=== PATIENT | female | born 1945 ===

== ENCOUNTER 2017-03-03 14:01 | Inpatient (IN) | payer MEDICARE, BC ==
[2017-03-03 14:02] VITALS: BMI 20.2
--- NOTE | 2017-03-03 16:57 | C.PDOC ---
History Of Present Illness 71-year-old female, Anemia, presents to the emergency department with complaints of three-day duration of RLE "coldness, numbness/tingling." Patient was admitted, and seen by vascular surgery, podiatry and had ?stent placed. Patient notes pain w/ ambulation. Pt states she smokes a pack of cigarettes every two days. Pt has a Hx of etoh abuse but does not drink anymore. Chief Complaint (Nursing): Lower Extremity Problem/Injury History Per: Patient History/Exam Limitations: no limitations Past Medical History Reviewed: Historical Data, Nursing Documentation, Vital Signs Vital Signs: Last Vital Signs Temp 99.0 F 03/03/17 17:50 Pulse 68 03/03/17 17:50 Resp 17 03/03/17 17:50 BP 135/82 03/03/17 17:50 Pulse Ox 100 03/03/17 17:50 - Medical History PMH: Anemia (blood transfusions), Gastritis Denies: Chronic Kidney Disease - [facility] Procedures DILATION OF R FEM ART WITH DRUG-ELUT INTRA, PERC APPROACH (12/11/16) EXCISION OF DESCENDING COLON, ENDO, DIAGN (12/16/15) EXCISION OF STOMACH, ENDO, DIAGN (12/16/15) EXERCISE TRMT MUSCULOSK LOW BACK/LE W ASSIST EQUIP (12/16/16) GAIT TRAINING/AMBULAT TREATMENT USING ASSIST EQUIPMENT (12/16/16) INSERTION OF INFUSION DEV INTO SUP VENA CAVA, PERC APPROACH (12/11/16) TRANSFUSE NONAUT RED BLOOD CELLS IN PERIPH VEIN, PERC (12/11/16) Family History: States: Unknown Family Hx - Social History Hx Alcohol Use: Yes Hx Substance Use: No - Immunization History Hx Tetanus Toxoid Vaccination: No Hx Influenza Vaccination: No Hx Pneumococcal Vaccination: No Review Of Systems Except As Marked, All Systems Reviewed And Found Negative. Constitutional: Negative for: Fever, Chills Respiratory: Negative for: Shortness of Breath Gastrointestinal: Negative for: Vomiting Musculoskeletal: Positive for: Leg Pain. Negative for: Back Pain Skin: Negative for: Rash Neurological: Positive for: Numbness Physical Exam - Physical Exam Neck: Normal ROM Extremity: Tenderness, Capillary Refill (<2 SECONDS), No Deformity, No Swelling , Other (RIGHT FOOT W/ DECREASED SENSATION TO THE PLANTAR ASPECT. TENDERNESS TO PALPATION OF SHORT.) Neurological/Psych: Oriented x3, Normal Speech ED Course And Treatment - Laboratory Results Result Diagrams: 03/03/17 16:56 03/03/17 16:56 O2 Sat by Pulse Oximetry: 100 Medical Decision Making Medical Decision Makinpm - Received report for arterial and venous duplex. Spoke to Dr. Benedict, vascular surgeon. Will evaluate patient in ER. 5:30pm - Dr. Benedict to do procedure tomorrow. Patient to be NPO after midnight, except for meds. Notified Dr. Judd about admission. Disposition - Disposition Disposition Time: 17:30 Condition: STABLE - Clinical Impression Clinical Impression: Arterial, arteriole and capillary disease, Occlusion of artery of lower extremity - Scribe Statement The provider has reviewed the documentation as recorded by the Ricarda Curtis All medical record entries made by the Emanuelibmartin were at my direction and personally dictated by me. I have reviewed the chart and agree that the record accurately reflects my personal performance of the history, physical exam, medical decision making, and the department course for this patient. I have also personally directed, reviewed, and agree with the discharge instructions and disposition.
[2017-03-03 17:06] LABS: BASO # 0.1 K/uL (0.0-0.2); BASO % 1.2 % (0.0-2.0); EOS # 0.4 K/uL (0.0-0.7); EOS % 3.6 % (0.0-4.0); HEMATOCRIT 39.7 % (34.0-47.0); LYMPH # 1.6 K/uL (1.0-4.3); LYMPH % 16.1 % (20.0-40.0); MEAN CELL VOLUME 86.9 fL (81.0-99.0); MEAN CORPUSCULAR HGB CONC 32.2 g/dL (33.0-37.0); MEAN PLATELET VOLUME 8.1 fL (7.2-11.7); MONO # 1.2 K/uL (0.0-0.8); MONO % 11.5 % (0.0-10.0); RED CELL DISTRIBUTION WIDTH 22.3 % (11.5-14.5); WHITE BLOOD COUNT 10.2 K/uL (4.8-10.8)
[2017-03-03 17:16] LABS: CHLORIDE 106 mmol/L (98-107); POTASSIUM 4.5 mmol/L (3.6-5.2); SODIUM 140 mmol/L (132-148)
[2017-03-03 17:19] LABS: ALB/GLOB RATIO 1.2 (1.0-2.1); ALKALINE PHOSPHATASE 77 U/L (38-126); ALT/SGPT 15 U/L (9-52); AST/SGOT 40 U/L (14-36); BILIRUBIN,TOTAL 0.3 mg/dL (0.2-1.3); BLOOD UREA NITROGEN 19 mg/dL (7-17); CARBON DIOXIDE 22 mmol/L (22-30); GFR AFRICAN-AMERICAN > 60; GLUCOSE,RANDOM 82 mg/dL (65-105); TOTAL PROTEIN 7.4 g/dL (6.3-8.3)
[2017-03-03] MEDS ORDERED: Heparin25000 units/250ml 1/2NS 250 ML IV ONE (17:35)
[2017-03-03] MEDS ORDERED: Heparin25000 units/250ml 1/2NS 250 ML IV PRN (17:41)
[2017-03-03] MEDS ORDERED: Cilostazol 100 mg Tab UD PO SCH (18:00)
[2017-03-03] MEDS ORDERED: Heparin25000 units/250ml 1/2NS 250 ML IV SCH (18:00)
--- NOTE | 2017-03-03 20:19 | CP.PCM.HP ---
History of Present Illness - History of Present Illness History of Present Illness: 71 with anemia, neg w/u PAD, cold leg f/u with surgery, prior recent PCI on R leg, doppler is with occlusion Present on Admission - Present on Admission Any Indicators Present on Admission: No Review of Systems - Review of Systems Systems not reviewed;Unavailable: Acuity of Condition - Constitutional Constitutional: Anorexia, Weakness - EENT Eyes: absent: Discharge Ears: absent: Ear Discharge Nose/Mouth/Throat: absent: Epistaxis - Cardiovascular Cardiovascular: absent: Acrocyanosis, Chest Pain, Diaphoresis, Leg Edema, Palpitations, Syncope - Respiratory Respiratory: absent: Cough, Dyspnea, Hemoptysis - Gastrointestinal Gastrointestinal: absent: Abdominal Pain, Cramping, Diarrhea, Vomiting - Genitourinary Genitourinary: absent: Change in Urinary Stream Past Patient History - Infectious Disease Hx of Infectious Diseases: None - Past Medical History & Family History Past Medical History?: Yes - Past Social History Smoking Status: Never Smoked - CARDIAC Hx Cardiac Disorders: No Hx Circulatory Problems: Yes Hx Peripheral Vascular Disease: Yes - PULMONARY Hx Respiratory Disorders: No - NEUROLOGICAL Hx Neurological Disorder: Yes Hx Dizziness: Yes - HEENT Hx HEENT Problems: No - RENAL Hx Chronic Kidney Disease: No - ENDOCRINE/METABOLIC Hx Endocrine Disorders: No - HEMATOLOGICAL/ONCOLOGICAL Hx Anemia: Yes (blood transfusions) - INTEGUMENTARY Hx Dermatological Problems: No - MUSCULOSKELETAL/RHEUMATOLOGICAL Hx Falls: No - GASTROINTESTINAL Hx Gastritis: Yes - GENITOURINARY/GYNECOLOGICAL Hx Genitourinary Disorders: No - PSYCHIATRIC Hx Substance Use: No - SURGICAL HISTORY Hx Surgeries: No Hx Angiogram: Yes Other/Comment: aorta femoral angiogram left groin on 12/14/16 - ANESTHESIA Hx Anesthesia: No Hx Anesthesia Reactions: No Hx Malignant Hyperthermia: No Meds Allergies/Adverse Reactions: Allergies Allergy/AdvReac Type Severity Reaction Status Date / Time No Known Allergies Allergy Verified 12/16/16 15:51 Physical Exam - Constitutional Appears: Non-toxic - Head Exam Head Exam: ATRAUMATIC - Eye Exam Eye Exam: EOMI - ENT Exam ENT Exam: Mucous Membranes Moist - Neck Exam Neck exam: Negative for: Lymphadenopathy, Thyromegaly - Respiratory Exam Respiratory Exam: Clear to Auscultation Bilateral. absent: Rales - Cardiovascular Exam Cardiovascular Exam: REGULAR RHYTHM, Systolic Murmur - GI/Abdominal Exam GI & Abdominal Exam: Normal Bowel Sounds. absent: Organomegaly - Rectal Exam Rectal Exam: Deferred - Extremities Exam Extremities exam: Negative for: calf tenderness, normal capillary refill, pedal pulses present - Neurological Exam Neurological exam: Alert, Oriented x3 - Psychiatric Exam Psychiatric exam: Normal Affect - Skin Skin Exam: Dry Results - Vital Signs Recent Vital Signs: Last Vital Signs Temp 99.0 F 03/03/17 17:50 Pulse 68 03/03/17 17:50 Resp 17 03/03/17 17:50 BP 135/82 03/03/17 17:50 Pulse Ox 100 03/03/17 18:23 - Labs Result Diagrams: 03/03/17 16:56 03/03/17 16:56 Assessment & Plan (1) Arterial occlusion, lower extremity Status: Acute Comment: f/u with surgery (2) Ischemia of foot Status: Acute Decision To Admit - Pt Status Changed To: Hospital Disposition Of: Inpatient - Admit Certification Admit to Inpatient:: After my assessment, the patient will require hospitalization for at least two midnights. This is because of the severity of symptoms shown, intensity of services needed, and/or the medical risk in this patient being treated as an outpatient. - InPatient: Physician Admission Certification:: yes - . Bed Request Type: Regular
[2017-03-03] MEDS: Dextrose 5%/0.9% NS 1,000 ML IV SCH (20:38)
--- NOTE | 2017-03-03 20:58 | CP.PCM.CON ---
History of Present Illness - History of Present Illness History of Present Illness: Vascular Surgery Consult Re: Thrombosed stents HPI: 71F known to the vascular service presented to ED C/O RLE pain, numbness, and coldness since Tuesday. Pain would not improve, and it is similar to pain she had in November of this year that required her to get R SFA stenting. No other C/O at this time. PMH: Anemia, Hx gastritis PSH: R SFA stents SH: Current smoker, no EtOH or drug use All: NKDA Meds: iron pills Review of Systems - Review of Systems All systems: reviewed and no additional remarkable complaints except (as per HPI ) Past Patient History - Infectious Disease Hx of Infectious Diseases: None - Past Medical History & Family History Past Medical History?: Yes - Past Social History Smoking Status: Never Smoked - CARDIAC Hx Cardiac Disorders: No Hx Circulatory Problems: Yes Hx Peripheral Vascular Disease: Yes - PULMONARY Hx Respiratory Disorders: No - NEUROLOGICAL Hx Neurological Disorder: Yes Hx Dizziness: Yes - HEENT Hx HEENT Problems: No - RENAL Hx Chronic Kidney Disease: No - ENDOCRINE/METABOLIC Hx Endocrine Disorders: No - HEMATOLOGICAL/ONCOLOGICAL Hx Anemia: Yes (blood transfusions) - INTEGUMENTARY Hx Dermatological Problems: No - MUSCULOSKELETAL/RHEUMATOLOGICAL Hx Falls: No - GASTROINTESTINAL Hx Gastritis: Yes - GENITOURINARY/GYNECOLOGICAL Hx Genitourinary Disorders: No - PSYCHIATRIC Hx Substance Use: No - SURGICAL HISTORY Hx Surgeries: No Hx Angiogram: Yes Other/Comment: aorta femoral angiogram left groin on 12/14/16 - ANESTHESIA Hx Anesthesia: No Hx Anesthesia Reactions: No Hx Malignant Hyperthermia: No Meds Allergies/Adverse Reactions: Allergies Allergy/AdvReac Type Severity Reaction Status Date / Time No Known Allergies Allergy Verified 12/16/16 15:51 - Medications Medications: Current Medications Acetaminophen (Tylenol 325mg Tab) 650 mg PO Q6 PRN PRN Reason: Fever >100.4 F Docusate Sodium (Colace) 100 mg PO BID [facility] Heparin Sodium/Sodium Chloride (Heparin 74460 Units/250ml 1/2 Normal Saline) 250 mls @ 8.573 mls/hr IV .Q24H [facility]; 18 UNITS/KG/HR PRN Reason: Protocol Last Admin: 03/03/17 18:22 Dose: 8.573 mls/hr Dextrose/Sodium Chloride (Dextrose 5%/0.9% Ns 1000 Ml) 1,000 mls @ 100 mls/hr IV .Q10H [facility] Ondansetron HCl (Zofran Inj) 4 mg IVP Q6H PRN PRN Reason: Nausea/Vomiting Ondansetron HCl (Zofran Inj) 4 mg IVP Q6 PRN PRN Reason: Nausea/Vomiting Oxycodone/Acetaminophen (Percocet 5/325 Mg Tab) 1 tab PO Q4 PRN PRN Reason: Pain, moderate (4-7) Stop: 03/06/17 20:22 Sucralfate (Carafate Tab) 1 gm PO BID [facility] [place] [place] Physical Exam - Constitutional Appears: Non-toxic, No Acute Distress - Head Exam Head Exam: ATRAUMATIC, NORMOCEPHALIC - Eye Exam Eye Exam: EOMI. absent: Scleral icterus - ENT Exam ENT Exam: Mucous Membranes Moist Additional comments: trachea midline - Respiratory Exam Respiratory Exam: NORMAL BREATHING PATTERN. absent: Respiratory Distress - Cardiovascular Exam Cardiovascular Exam: RRR, +S1, +S2 - GI/Abdominal Exam GI & Abdominal Exam: Soft. absent: Distended, Tenderness - Rectal Exam Rectal Exam: Deferred - Extremities Exam Extremities exam: Positive for: calf tenderness (on R), tenderness (on RLE from below the knee to the toes). Negative for: pedal edema Additional comments: L PT pulse faintly palpable no palpable pulses on R from popliteal down - Back Exam Back exam: absent: CVA tenderness (L), CVA tenderness (R) - Neurological Exam Neurological exam: Alert, Oriented x3 - Psychiatric Exam Psychiatric exam: Normal Affect, Normal Mood - Skin Skin Exam: Dry, Intact, Warm Results - Vital Signs Recent Vital Signs: Last Vital Signs Temp 99.0 F 03/03/17 17:50 Pulse 68 03/03/17 17:50 Resp 17 03/03/17 17:50 BP 135/82 03/03/17 17:50 Pulse Ox 100 03/03/17 18:23 - Labs Result Diagrams: 03/03/17 16:56 03/03/17 16:56 - Imaging and Cardiology US - RLE Status: Image reviewed by me, Report reviewed by me Assessment & Plan - Assessment and Plan (Free Text) Assessment: 71F with Thrombosed stents in RLE Plan: Heparin drip NPO p MN IVF analgesia Zofran Angio tomorrow in the hoisting laborer Per Dr Marichuy Turcios PGY3
[2017-03-04] MEDS ORDERED: Heparin25000 units/250ml 1/2NS 250 ML IV SCH (00:45)
[2017-03-04] MEDS: Oxycodone/Acetaminophen 5/325 mg Tab PO PRN (04:48)
[2017-03-04] MEDS: Dextrose 5%/0.9% NS 1,000 ML IV SCH ×2 (06:49→08:25)
[2017-03-04] MEDS: Heparin25000 units/250ml 1/2NS 250 ML IV SCH (10:21)
--- NOTE | 2017-03-04 11:41 | CP.PCM.PN ---
Subjective - Date & Time of Evaluation Date of Evaluation: 03/04/17 Time of Evaluation: 12:00 - Subjective Subjective: Mildly elevated blood pressure, observe, follow-up with surgery for intervention on the right leg Objective - Vital Signs/Intake and Output Vital Signs (last 24 hours): Temp Pulse Resp BP Pulse Ox 98.0 F 64 20 169/77 H 96 03/04/17 08:56 03/04/17 08:56 03/04/17 08:56 03/04/17 08:56 03/04/17 08:56 - Medications Medications: Current Medications Acetaminophen (Tylenol 325mg Tab) 650 mg PO Q6 PRN PRN Reason: Fever >100.4 F Docusate Sodium (Colace) 100 mg PO BID [facility] Last Admin: 03/04/17 09:10 Dose: Not Given Dextrose/Sodium Chloride (Dextrose 5%/0.9% Ns 1000 Ml) 1,000 mls @ 100 mls/hr IV .Q10H [facility] Last Admin: 03/04/17 08:25 Dose: 100 mls/hr Heparin Sodium/Sodium Chloride (Heparin 98351 Units/250ml 1/2 Normal Saline) 250 mls @ 5.715 mls/hr IV .Q24H [facility]; 12 UNITS/KG/HR PRN Reason: Protocol Last Admin: 03/04/17 10:21 Dose: 5.715 mls/hr Ondansetron HCl (Zofran Inj) 4 mg IVP Q6H PRN PRN Reason: Nausea/Vomiting Ondansetron HCl (Zofran Inj) 4 mg IVP Q6 PRN PRN Reason: Nausea/Vomiting Oxycodone/Acetaminophen (Percocet 5/325 Mg Tab) 1 tab PO Q4 PRN PRN Reason: Pain, moderate (4-7) Stop: 03/06/17 20:22 Last Admin: 03/04/17 04:48 Dose: 1 tab Sucralfate (Carafate Tab) 1 gm PO BID [facility] Last Admin: 03/04/17 09:10 Dose: Not Given - Labs Labs: PT 11.4 SECONDS (9.7-12.2) 03/03/17 16:56 INR 1.0 03/03/17 16:56 APTT 131 SECONDS (21-34) H* D 03/04/17 07:43 - Constitutional Appears: Non-toxic - Head Exam Head Exam: ATRAUMATIC - Eye Exam Eye Exam: EOMI - ENT Exam ENT Exam: Mucous Membranes Moist - Neck Exam Neck Exam: absent: Lymphadenopathy, Thyromegaly - Respiratory Exam Respiratory Exam: Clear to Ausculation Bilateral. absent: Rales - Cardiovascular Exam Cardiovascular Exam: REGULAR RHYTHM, Murmur - GI/Abdominal Exam GI & Abdominal Exam: Normal Bowel Sounds. absent: Organomegaly - Rectal Exam Rectal Exam: Deferred - Extremities Exam Extremities Exam: Normal Capillary Refill. absent: Calf Tenderness - Neurological Exam Neurological Exam: Alert, Oriented x3 - Psychiatric Exam Psychiatric exam: Normal Mood - Skin Skin Exam: Dry Assessment and Plan (1) Arterial occlusion, lower extremity Status: Acute (2) Ischemia of foot Status: Acute
[2017-03-04] MEDS ORDERED: Iodixanol 320 MG/ML 200 ML BOTTLE IV ONE (13:06)
[2017-03-04] MEDS ORDERED: Iodixanol 320 MG/ML 100 ML BOTTLE IV ONE ×2 (13:07→14:43)
[2017-03-04] MEDS ORDERED: Heparin 2,000 ML IV ONE (13:27)
[2017-03-04] MEDS ORDERED: Propofol 10 mg/ml Inj (20 ML) ONE ×2 (13:31→14:44)
[2017-03-04] MEDS ORDERED: Lidocaine 2% Inj (20ml) ONE ×2 (13:39→13:46)
[2017-03-04] MEDS ORDERED: Midazolam 2 MG/2 ML VIAL ONE ×2 (13:43→13:53)
--- NOTE | 2017-03-04 15:05 | VASCLAB ---
PROCEDURE: Right Lower Extremity Venous Duplex Exam. HISTORY: Pain in limb, cool leg/foot PRIORS: None. TECHNIQUE: Right common femoral, femoral, popliteal and posterior tibial, peroneal and great saphenous veins were evaluated. Flow was assessed with color Doppler, compressibility, assessment of phasic flow and augmentation response. Report prepared by SEAMUS Mckeon FINDINGS: RIGHT: 1. Common Femoral Vein: 1.1. Compressibility - Fully compressible: Thrombus - None: Flow - Phasic: Augmentation -Normal: Reflux - None. 2. Femoral Vein: 2.1. Compressibility - Fully compressible: Thrombus - None: Flow - Phasic: Augmentation -Normal: Reflux - None. 3. Popliteal Vein: 3.1. Compressibility - Fully compressible: Thrombus - None: Flow - Phasic: Augmentation -Normal: Reflux - None. 4. Posterior Tibial Vein: 4.1. Compressibility - Fully compressible: Thrombus - None: Flow - Phasic: Augmentation -Normal: Reflux - None. 5. Peroneal Vein: 5.1. Compressibility - Fully compressible: Thrombus - None: Flow - Phasic: Augmentation -Normal: Reflux - None. 6. Great Saphenous Vein: 6.1. Compressibility - Fully compressible: Thrombus -None: Flow - Phasic: Augmentation - Normal: Reflux - None. OTHER FINDINGS: IMPRESSION: No evidence of deep or superficial vein thrombosis of the right lower extremity with excellent venous flow. Normal valve function noted of the right side. Normal venous flow noted in the left common femoral vein.
--- NOTE | 2017-03-04 15:06 | VASCLAB ---
PROCEDURE: HISTORY: Pain in limb, cool leg/foot, Right lower extremity stents COMPARISON: None available. TECHNIQUE: Grayscale and duplex Doppler evaluation of the right common femoral, femoral, profunda femoral, popliteal, posterior tibial, anterior tibial and dorsalis pedis arteries was performed. Report prepared by SEAMUS Mckeon FINDINGS: RIGHT LOWER EXTREMITY: * Common Femoral Artery: Unable to image * Superficial Femoral Artery Stent o Proximal Segment: Peak Systolic Velocity - 0: Doppler Waveform: Absent o Middle Segment: Peak Systolic Velocity - 0: Doppler Waveform: Absent o Distal Segment: Peak Systolic Velocity - 0: Doppler Waveform: Absent * Popliteal Artery Stent o Proximal Segment: Peak Systolic Velocity - 0: Doppler Waveform: Absent o Middle Segment: Peak Systolic Velocity - 0: Doppler Waveform: Absent o Distal Segment: Peak Systolic Velocity - 0: Doppler Waveform: Absent OTHER FINDINGS: None. IMPRESSION: 1. Occluded right superficial femoral artery stent. 2. Occluded right popliteal artery stent. 3. Unable to image the tibial arteries in the right lower extremity, due to small caliber vessels. Findings were reported by the computed tomography technologist, to the E.R. physician Dr. Mccauley, on 03/03/2017 at 4:36 p.m.
--- NOTE | 2017-03-04 16:33 | PCM.SURG1 ---
Surgeon's Initial Post Op Note - Surgeon's Notes Surgeon: galen Rf Technician: 0 Type of Anesthesia: IV Sedation Anesthesia Administered By: abhishek Pre-Operative Diagnosis: acute thrombosis right ilac and sfa Operative Findings: complete occlusion of right external ilac, common femora. profonda and sfa down to knee. no named vessels seen distally. LEFT SFA occlusion with recon at knee Post-Operative Diagnosis: same Operation Performed: AORTOFEMORAL ANGIOGRAM VIA LEFT GROIN. SLECTIVE CATHERIZATION OF RIGHT FEMORAL ARTERY. MECHANCICAL THROMBOLYIS OF RIGHT ILIAC AND SFA. BALLOON ANGIOPLASTY / 5X40 STENT TO ORIGIN OF RIGHT PROFONDA. PERCLOSE LEFT GROIN Specimen/Specimens Removed: 0 Estimated Blood Loss: EBL {In ML}: 50 Blood Products Given: N/A Drains Used: No Drains Post-Op Condition: Good Date of Surgery/Procedure: 03/04/17 Time of Surgery/Procedure: 16:35
--- NOTE | 2017-03-04 17:04 | VAS ---
DATE: 03/04/2017 PREOPERATIVE DIAGNOSIS: Acute ischemia, right leg. PROCEDURE CARRIED OUT: Aortofemoral angiogram via left groin with selective catheterization of right femoral artery, mechanical thrombolysis of the right external iliac and superficial femoral artery w ith the AngioJet power pulse device and then balloon angioplasty and stenting of the profunda femoris artery. SURGEON: Krishna Benedict MD. MANAGER CABLE: None. ANESTHESIOLOGIST: ____ . INDICATIONS: The patient is a 71-year-old woman who continues to smoke, who was admitted to the [facility] in November. She had an emergency intervention on her right leg with salvage of her right leg at that time, she now is readmitted with a relatively acute ischemia of a few days duration of the righ t leg. ANGIOGRAPHIC FINDINGS OPERATIVE FINDINGS: The aorta and renal arteries are free of significant occlusive disease. Both co mmon iliac arteries are free of significant occlusive disease. On the left side, the external iliac arteries were widely patent. Profunda was widely patent. The superficial femoral artery was occlude d and reconstituted above the level of the knee. Runoff vessels were not be adequately visualized. On the right side the external iliac artery was completely occluded and did not reconstitute in the g roin and the profunda was poorly visualized. The superficial femoral artery was completely occluded down to the level of the knee. Subsequent to the performance of diagnostic arteriogram, a stiff-angled guidewire was advanced over t he aortic bifurcation and a sheath positioned in the common femoral artery, a 7-Maltese sheath. Using a variety of techniques this lesion was eventually crossed and a Lozano wire placed down to level of the popliteal artery. We then, using TPA and mechanical thrombolysis using the AngioJet device, were able to recanalized the external iliac artery and the proximal portion of the superficial femoral ar carol. However, we were unable to enter into any named tibial vessel. Previous images shown that the peroneal artery was patent; however, in this case, we were unable to v isualize this at all and we abandoned further attempts at trying to recanalize the vessels below the knee. We then turned our attention to the common femoral artery. We carried out using road mapping techniq ues crossed into the profunda, dilated this with a 4 mm balloon and eventually deployed a 5 mm stent excluding the superficial femoral artery but providing widely patent flow into the profunda femoris a rtery and the artery opened external iliac artery. This resulted in a much better perfusion into the limbs and we had had before. The procedure was subsequently terminated with deployment of a Perclo se device in the left groin. OPERATION CARRIED OUT: 1. Aortofemoral angiogram with selective catheterization of right femoral artery from left groin. 2. Mechanical thrombolysis using AngioJet device and TPA. 3. Balloon angioplasty and stenting of the right profunda femoris artery and TPA AngioJet was nikolas d out on the external iliac, common femoral, and superficial femoral artery into the popliteal artery . Subsequent to this, a Perclose device deployed in the left groin. The procedure was terminated. Blood loss of procedure was over 50 mL. Krishan Benedict Jr., MD cc:Gisela Judd MD 56 TT: 03/04/2017 17:03:22 Confirmation # [id number] Dictation # [id number]
[2017-03-04] MEDS: Dextrose 5%/0.45% NS 1,000 ML IV SCH (18:17)
--- NOTE | 2017-03-04 18:52 | CP.PCM.CON ---
<Bravo Solorio - Last Filed: 03/04/17 21:15> History of Present Illness - History of Present Illness History of Present Illness: ICU consult note for pallet rectifier, Dr. Johnson Consult for: monitoring post-aortofemoral angiogram HPI: Patient is 71 year old female, with PMHx of anemia, right hallux ulcer, GI bleed , syncopal episodes, and alcohol abuse, who presented to ED on 03/03 for three days of experiencing right lower extremity "coldness" with associated numbness and tingling since Tuesday. Pain would not improve, and it is similar to pain she had in November of this year that required her to get right superficial femoral artery stenting. Pt has had negative workup for PAD in the past. Extremity dopplers performed on admission show occluded right superficial femoral artery stent, and occluded right popliteal artery stent. Pt was placed on heparin drip and scheduled for angio. Dr. Benedict, vascular surgery, performed aortofemoral angiogram with thrombolysis of right iliac and sfa. Blood loss of estimated 50ml during surgery. Pt was transferred to ICU for monitoring post-procedure. PMHx: see above PSH: R SFA stents SH: smokes approx 1/2 ppd, admits hx of alcohol abuse, but denies drug use Allergies: NKA Review of Systems - Review of Systems Systems not reviewed;Unavailable: Other (pt s/p anesthesia) - Constitutional Constitutional: absent: Chills, Fever - Cardiovascular Cardiovascular: absent: Chest Pain, Chest Pain at Rest, Dyspnea - Respiratory Respiratory: absent: Cough, Dyspnea - Gastrointestinal Gastrointestinal: absent: Abdominal Pain - Genitourinary Genitourinary: absent: Dysuria - Musculoskeletal Musculoskeletal: absent: Numbness - Neurological Neurological: absent: Tingling, Weakness Past Patient History - Infectious Disease Hx of Infectious Diseases: None - Past Medical History & Family History Past Medical History?: Yes - Past Social History Smoking Status: Former Smoker - CARDIAC Hx Cardiac Disorders: No Hx Circulatory Problems: Yes Hx Peripheral Vascular Disease: Yes - PULMONARY Hx Respiratory Disorders: No - NEUROLOGICAL Hx Neurological Disorder: Yes Hx Dizziness: Yes - HEENT Hx HEENT Problems: No - RENAL Hx Chronic Kidney Disease: No - ENDOCRINE/METABOLIC Hx Endocrine Disorders: No - HEMATOLOGICAL/ONCOLOGICAL Hx Anemia: Yes (blood transfusions) - INTEGUMENTARY Hx Dermatological Problems: No - MUSCULOSKELETAL/RHEUMATOLOGICAL Hx Falls: No - GASTROINTESTINAL Hx Gastritis: Yes - GENITOURINARY/GYNECOLOGICAL Hx Genitourinary Disorders: No - PSYCHIATRIC Hx Substance Use: No - SURGICAL HISTORY Hx Surgeries: No Hx Angiogram: Yes Other/Comment: aorta femoral angiogram left groin on 12/14/16 - ANESTHESIA Hx Anesthesia: No Hx Anesthesia Reactions: No Hx Malignant Hyperthermia: No Meds Allergies/Adverse Reactions: Allergies Allergy/AdvReac Type Severity Reaction Status Date / Time No Known Allergies Allergy Verified 12/16/16 15:51 - Medications Medications: Current Medications Acetaminophen (Tylenol 325mg Tab) 650 mg PO Q6 PRN PRN Reason: Fever >100.4 F Docusate Sodium (Colace) 100 mg PO BID [facility] Last Admin: 03/04/17 18:18 Dose: Not Given Heparin Sodium/Sodium Chloride (Heparin 32901 Units/250ml 1/2 Normal Saline) 250 mls @ 5.715 mls/hr IV .Q24H [facility]; 12 UNITS/KG/HR PRN Reason: Protocol Last Admin: 03/04/17 10:21 Dose: 5.715 mls/hr Dextrose/Sodium Chloride (Dextrose 5%/0.45% Ns 1000 Ml) 1,000 mls @ 100 mls/hr IV .Q10H [facility] Last Admin: 03/04/17 18:17 Dose: 100 mls/hr Ondansetron HCl (Zofran Inj) 4 mg IVP Q6H PRN PRN Reason: Nausea/Vomiting Ondansetron HCl (Zofran Inj) 4 mg IVP Q6 PRN PRN Reason: Nausea/Vomiting Oxycodone/Acetaminophen (Percocet 5/325 Mg Tab) 1 tab PO Q4 PRN PRN Reason: Pain, moderate (4-7) Stop: 03/06/17 20:22 Last Admin: 03/04/17 04:48 Dose: 1 tab Sucralfate (Carafate Tab) 1 gm PO BID [facility] Last Admin: 03/04/17 18:17 Dose: Not Given Physical Exam - Constitutional Appears: No Acute Distress - Head Exam Head Exam: ATRAUMATIC, NORMAL INSPECTION, NORMOCEPHALIC - Eye Exam Eye Exam: EOMI Pupil Exam: PERRL - ENT Exam ENT Exam: Mucous Membranes Moist - Respiratory Exam Respiratory Exam: Clear to Auscultation Bilateral, NORMAL BREATHING PATTERN Additional comments: 2L NC - Cardiovascular Exam Cardiovascular Exam: REGULAR RHYTHM, +S1, +S2 - GI/Abdominal Exam GI & Abdominal Exam: Normal Bowel Sounds, Soft. absent: Tenderness - Exam Additional comments: rawls catheter noted - Extremities Exam Additional comments: bandages noted - Neurological Exam Neurological exam: Alert, Oriented x3 Additional comments: drowsy from anesthesia but responsive - Psychiatric Exam Psychiatric exam: Normal Affect - Skin Skin Exam: Normal Color, Warm Results - Vital Signs Recent Vital Signs: Last Vital Signs Temp 98.4 F 03/04/17 18:09 Pulse 68 03/04/17 18:09 Resp 15 03/04/17 18:09 BP 135/73 03/04/17 18:09 Pulse Ox 99 03/04/17 11:40 - Labs Result Diagrams: 03/03/17 16:56 03/03/17 16:56 Labs: Laboratory Results - last 24 hr 03/04/17 03/04/17 00:02 07:43 APTT 305 H* D 131 H* D Assessment & Plan - Assessment and Plan (Free Text) Assessment: 71 year old female, with PMHx of anemia, right hallux ulcer, GI bleed, syncopal episodes, and alcohol abuse, who presented to ED on 03/03 for leg temperature change/numbness/tingling. US dopplers positive for occluded right superficial femoral artery stent, and occluded right popliteal artery stent. S/p aortofemoral angiogram with thrombolysis of right iliac/sfa. Plan: Neuro: AAOx3 - groggy post-anesthesia, but responsive CV: Normotensive post-surgery HTN noted through course Monitor BP GI: NPO D5/.5 NS @ 100 Colace 100mg PO BID Zofran 4mg IV Q6H PRN : rawls placed 03/04 following surgery Monitor I/Os Extremity: US Doppler RLE (03/03/17): No evidence of superficial vein thrombosis of RLE, with excellent venous flow. US Doppler LLE (03/03/17): Occluded right superficial femoral artery stent. Occluded right popliteal artery stent. S/p Angiogram/Thrombolysis with Dr. Honey Devineocet 5/325 1 tab PO Q4 PRN, moderate pain Hem/Onc Hx of anemia - Hgb 12.8 on 03/03 Prophylaxis: SCDs contraindicated Heparin drip Carafate D/w Dr. Alex Solorio, PGY-1 <Paul Johnson S - Last Filed: 04/20/17 13:23> Results - Vital Signs Recent Vital Signs: Last Vital Signs Temp 98.3 F 03/09/17 16:00 Pulse 92 H 03/09/17 16:00 Resp 20 03/09/17 16:00 BP 120/70 03/09/17 16:00 Pulse Ox 98 03/09/17 16:00 - Labs Result Diagrams: 03/09/17 07:20 03/09/17 07:20 Attending/Attestation - Attestation I have personally seen and examined this patient.: Yes I have fully participated in the care of the patient.: Yes I have reviewed all pertinent clinical information: Yes Notes (Text): 04/20/17 13:23 Patient seen and examined. S/p aortofemoral angiogram with thrombolysis of right iliac/sfa. Continue present treatment
[2017-03-05] MEDS: Dextrose 5%/0.45% NS 1,000 ML IV SCH (02:55)
[2017-03-05 04:14] LABS: MEAN CELL VOLUME 87.1 fL (81.0-99.0); MEAN CORPUSCULAR HEMOGLOBIN 27.5 pg (27.0-31.0); MEAN CORPUSCULAR HGB CONC 31.5 g/dL (33.0-37.0); RED CELL DISTRIBUTION WIDTH 22.2 % (11.5-14.5); WHITE BLOOD COUNT 9.4 K/uL (4.8-10.8)
[2017-03-05 04:15] LABS: CHLORIDE 111 mmol/L (98-107); POTASSIUM 3.9 mmol/L (3.6-5.2); SODIUM 140 mmol/L (132-148)
[2017-03-05 04:17] LABS: BILIRUBIN,TOTAL 0.2 mg/dL (0.2-1.3); GFR AFRICAN-AMERICAN > 60; MAGNESIUM 1.8 mg/dL (1.6-2.3); PHOSPHOROUS 3.6 mg/dL (2.5-4.5)
[2017-03-05 04:18] LABS: ALB/GLOB RATIO 1.1 (1.0-2.1); ALKALINE PHOSPHATASE 50 U/L (38-126); ALT/SGPT 19 U/L (9-52); AST/SGOT 55 U/L (14-36); BLOOD UREA NITROGEN 10 mg/dL (7-17); CALCIUM 7.8 mg/dl (8.6-10.4); CARBON DIOXIDE 19 mmol/L (22-30); GLUCOSE,RANDOM 116 mg/dL (65-105); TOTAL PROTEIN 5.3 g/dL (6.3-8.3)
--- NOTE | 2017-03-05 07:48 | CP.CCUPN ---
CCU Subjective - Physician Review Events Since Last Encounter (Free Text): 03/05/17 07:46 Patient is a 71-year-old female with history of anemia, alcohol use, chronic smoker admitted to the hospital with right femoral artery occlusion, and the patient underwent thrombolysis and heparin drip. Patient is currently still having pain over the right leg as well as over the left leg. There is a significant discoloration of the right foot still noted. The right foot is more cold than the left foot. And also there is a significant pain on the left leg and slight discoloration noted also Peripheral pulses in the legs is not dopplerable. Vital signs otherwise stable. CCU Objective - Vital Signs / Intake & Output Vital Signs (Last 4 hours): Vital Signs Temp Pulse Resp BP Pulse Ox 03/05/17 06:00 68 17 143/58 L 100 03/05/17 05:00 68 17 143/52 L 100 03/05/17 04:00 98.2 F 76 16 127/55 L 100 Chest good air entry bilaterally regular heart sound nontender abdomen. [employer] alert awake oriented 3 no functional neurological deficit Intake and Output (Last 8hrs): Intake & Output 03/04/17 03/05/17 03/05/17 22:59 06:59 14:59 Intake Total 704.3 934.4 Output Total 400 340 Balance 304.3 594.4 Intake: IV 0 Intake, IV Amount 304.3 834.4 Left Forearm 300 800 Left Hand 4.3 34.4 Oral 400 100 Output: Urine 400 340 Urine, Voided 75 Urethral (Davis) 325 340 Other: # Voids Urine, Voided 2 - Medications Active Medications: Active Medications Generic Name Dose Route Start Last Admin Trade Name Freq PRN Reason Stop Dose Admin Acetaminophen 650 mg 03/03/17 20:21 03/04/17 21:30 Tylenol 325mg Tab PO 650 mg Q6 PRN Administration Fever >100.4 F Docusate Sodium 100 mg 03/04/17 10:00 03/04/17 18:18 Colace PO Not Given BID [facility] Heparin Sodium/Sodium Chloride 250 mls @ 5.715 mls/hr 03/04/17 10:20 03/04/17 21:56 Heparin 34554 Units/250ml 1/2 Normal Saline IV 9 units/kg/hr .Q24H [facility] Titration Protocol 12 UNITS/KG/HR Dextrose/Sodium Chloride 1,000 mls @ 100 mls/hr 03/04/17 16:45 03/05/17 02:55 Dextrose 5%/0.45% Ns 1000 Ml IV 100 mls/hr .Q10H [facility] Administration Ondansetron HCl 4 mg 03/03/17 17:36 Zofran Inj IVP Q6H PRN Nausea/Vomiting Ondansetron HCl 4 mg 03/03/17 20:21 Zofran Inj IVP Q6 PRN Nausea/Vomiting Oxycodone/Acetaminophen 1 tab 03/03/17 20:21 03/04/17 04:48 Percocet 5/325 Mg Tab PO 03/06/17 20:22 1 tab Q4 PRN Administration Pain, moderate (4-7) Sucralfate 1 gm 03/04/17 10:00 03/04/17 18:17 Carafate Tab PO Not Given BID [facility] - Patient Studies Lab Studies: Lab Studies 03/05/17 03/04/17 03/04/17 Range/Units 04:01 20:40 07:43 WBC 9.4 (4.8-10.8) K/uL RBC 3.56 L (3.80-5.20) Mil/uL Hgb 9.8 L D (11.0-16.0) g/dL Hct 31.0 L (34.0-47.0) % MCV 87.1 (81.0-99.0) fL MCH 27.5 (27.0-31.0) pg MCHC 31.5 L (33.0-37.0) g/dL RDW 22.2 H (11.5-14.5) % Plt Count 213 (130-400) K/uL MPV 8.0 (7.2-11.7) fL APTT 54 H D 133 H* 131 H* D (21-34) SECONDS Sodium 140 (132-148) mmol/L Potassium 3.9 (3.6-5.2) mmol/L Chloride 111 H (98-107) mmol/L Carbon Dioxide 19 L (22-30) mmol/L Anion Gap 14 (10-20) BUN 10 (7-17) mg/dL Creatinine 0.7 (0.7-1.2) MG/DL Est GFR ( Amer) > 60 Est GFR (Non-Af Amer) > 60 Random Glucose 116 H (65-105) mg/dL Calcium 7.8 L (8.6-10.4) mg/dl Phosphorus 3.6 (2.5-4.5) mg/dL Magnesium 1.8 (1.6-2.3) mg/dL Total Bilirubin 0.2 (0.2-1.3) mg/dL AST 55 H D (14-36) U/L ALT 19 (9-52) U/L Alkaline Phosphatase 50 (38-126) U/L Total Protein 5.3 L (6.3-8.3) g/dL Albumin 2.8 L D (3.5-5.0) g/dL Globulin 2.5 (2.2-3.9) gm/dL Albumin/Globulin Ratio 1.1 (1.0-2.1) Laboratory Results - last 24 hr 03/04/17 03/04/17 03/05/17 07:43 20:40 04:01 WBC 9.4 RBC 3.56 L Hgb 9.8 L D Hct 31.0 L MCV 87.1 MCH 27.5 MCHC 31.5 L RDW 22.2 H Plt Count 213 MPV 8.0 APTT 131 H* D 133 H* 54 H D Sodium 140 Potassium 3.9 Chloride 111 H Carbon Dioxide 19 L Anion Gap 14 BUN 10 Creatinine 0.7 Est GFR ( Amer) > 60 Est GFR (Non-Af Amer) > 60 Random Glucose 116 H Calcium 7.8 L Phosphorus 3.6 Magnesium 1.8 Total Bilirubin 0.2 AST 55 H D ALT 19 Alkaline Phosphatase 50 Total Protein 5.3 L Albumin 2.8 L D Globulin 2.5 Albumin/Globulin Ratio 1.1 Review of Systems - Review of Systems All systems: reviewed and no additional remarkable complaints except Review of Systems: Patient is awake and responding. Patient is not in any distress at this time. Patient no nausea vomiting. Critical Care Progress Note - Nutrition Nutrition: Nutrition Category Date Time Status Regular Diet [DIET] Diets 03/03/17 Breakfast Active Assessment/Plan (1) Arterial occlusion, lower extremity Assessment and plan: Patient with a severe peripherovascular disease. Severe peripheral vascular disease with occlusion. Patient underwent a thrombolysis on heparin drip. Still showing no evidence of improvement. We'll continue to monitor, surgical follow-up closely monitor the hemoglobin Current Visit: Yes Status: Acute (2) Tobacco abuse Current Visit: No Status: Acute
--- NOTE | 2017-03-05 08:47 | CP.PCM.PN ---
Subjective - Date & Time of Evaluation Date of Evaluation: 03/05/17 Time of Evaluation: 06:00 - Subjective Subjective: Vascular surgery - Dr. Benedict Pt S&E. Pt doing well post-operatively. She still complains of pain in the R leg, unchanged. B/L LE are warm and appear perfused, Pulses were not dopplerable. Left groin C/D/I with no signs of hematoma. Objective - Vital Signs/Intake and Output Vital Signs (last 24 hours): Temp Pulse Resp BP Pulse Ox 98.3 F 84 18 132/84 100 03/05/17 08:00 03/05/17 08:00 03/05/17 08:00 03/05/17 08:00 03/05/17 08:00 Intake and Output: 03/05/17 03/05/17 06:59 18:59 Intake Total 1138.7 328.6 Output Total 900 100 Balance 238.7 228.6 - Medications Medications: Current Medications Acetaminophen (Tylenol 325mg Tab) 650 mg PO Q6 PRN PRN Reason: Fever >100.4 F Last Admin: 03/05/17 07:53 Dose: 650 mg Docusate Sodium (Colace) 100 mg PO BID [facility] Last Admin: 03/04/17 18:18 Dose: Not Given Heparin Sodium/Sodium Chloride (Heparin 72478 Units/250ml 1/2 Normal Saline) 250 mls @ 5.715 mls/hr IV .Q24H [facility]; 12 UNITS/KG/HR PRN Reason: Protocol Last Titration: 03/04/17 21:56 Dose: 9 units/kg/hr Dextrose/Sodium Chloride (Dextrose 5%/0.45% Ns 1000 Ml) 1,000 mls @ 100 mls/hr IV .Q10H [facility] Last Admin: 03/05/17 02:55 Dose: 100 mls/hr Ondansetron HCl (Zofran Inj) 4 mg IVP Q6H PRN PRN Reason: Nausea/Vomiting Ondansetron HCl (Zofran Inj) 4 mg IVP Q6 PRN PRN Reason: Nausea/Vomiting Oxycodone/Acetaminophen (Percocet 5/325 Mg Tab) 1 tab PO Q4 PRN PRN Reason: Pain, moderate (4-7) Stop: 03/06/17 20:22 Last Admin: 03/04/17 04:48 Dose: 1 tab Sucralfate (Carafate Tab) 1 gm PO BID [facility] Last Admin: 03/04/17 18:17 Dose: Not Given - Labs Labs: 03/05/17 04:01 03/05/17 04:01 PT 11.4 SECONDS (9.7-12.2) 03/03/17 16:56 INR 1.0 03/03/17 16:56 APTT 54 SECONDS (21-34) H D 03/05/17 04:01 - Constitutional Appears: No Acute Distress - Head Exam Head Exam: ATRAUMATIC, NORMAL INSPECTION, NORMOCEPHALIC - Respiratory Exam Respiratory Exam: NORMAL BREATHING PATTERN. absent: Respiratory Distress - Extremities Exam Additional comments: L groin puncture site C/D/I with dermabond B/L LE warm and with good capillary refill, Pulses were not dopplerable - Neurological Exam Neurological Exam: Alert, Oriented x3 - Psychiatric Exam Psychiatric exam: Normal Affect, Normal Mood - Skin Skin Exam: Dry, Intact Assessment and Plan - Assessment and Plan (Free Text) Assessment: 71yo F s/p Angiogram w/ thrombolysis of R iliac and SFA, Balloon angioplasty and Stent placement, POD #1 -B/L LE appear perfused, groin site looks good -Continue anticoagulation -Continue care as per ICU/PMD Further recs per Dr. Benedict
--- NOTE | 2017-03-05 10:08 | CP.PCM.PN ---
Subjective - Date & Time of Evaluation Date of Evaluation: 03/05/17 Time of Evaluation: 10:06 - Subjective Subjective: right leg much improved difficult to hear doppler signals in either foot. but no neuro or motor deficit may require left groin exporation ? closure device related will make NPO for possible exploration in AM Objective - Vital Signs/Intake and Output Vital Signs (last 24 hours): Temp Pulse Resp BP Pulse Ox 98.3 F 84 18 132/84 100 03/05/17 08:00 03/05/17 08:00 03/05/17 08:00 03/05/17 08:00 03/05/17 08:00 Intake and Output: 03/05/17 03/05/17 06:59 18:59 Intake Total 1138.7 328.6 Output Total 900 100 Balance 238.7 228.6 - Medications Medications: Current Medications Acetaminophen (Tylenol 325mg Tab) 650 mg PO Q6 PRN PRN Reason: Fever >100.4 F Last Admin: 03/05/17 07:53 Dose: 650 mg Docusate Sodium (Colace) 100 mg PO BID [facility] Last Admin: 03/05/17 09:25 Dose: 100 mg Heparin Sodium/Sodium Chloride (Heparin 01201 Units/250ml 1/2 Normal Saline) 250 mls @ 5.715 mls/hr IV .Q24H [facility]; 12 UNITS/KG/HR PRN Reason: Protocol Last Titration: 03/04/17 21:56 Dose: 9 units/kg/hr Dextrose/Sodium Chloride (Dextrose 5%/0.45% Ns 1000 Ml) 1,000 mls @ 100 mls/hr IV .Q10H [facility] Last Admin: 03/05/17 02:55 Dose: 100 mls/hr Ondansetron HCl (Zofran Inj) 4 mg IVP Q6H PRN PRN Reason: Nausea/Vomiting Ondansetron HCl (Zofran Inj) 4 mg IVP Q6 PRN PRN Reason: Nausea/Vomiting Oxycodone/Acetaminophen (Percocet 5/325 Mg Tab) 1 tab PO Q4 PRN PRN Reason: Pain, moderate (4-7) Stop: 03/06/17 20:22 Last Admin: 03/04/17 04:48 Dose: 1 tab Sucralfate (Carafate Tab) 1 gm PO BID [facility] Last Admin: 03/05/17 09:25 Dose: 1 gm - Labs Labs: 03/05/17 04:01 03/05/17 04:01 PT 11.4 SECONDS (9.7-12.2) 03/03/17 16:56 INR 1.0 03/03/17 16:56 APTT 54 SECONDS (21-34) H D 03/05/17 04:01
[2017-03-05] MEDS: Oxycodone/Acetaminophen 5/325 mg Tab PO PRN ×2 (10:51→23:45)
--- NOTE | 2017-03-05 14:39 | CP.PCM.PN ---
Subjective - Date & Time of Evaluation Date of Evaluation: 03/05/17 Time of Evaluation: 15:00 - Subjective Subjective: post percutaneous intervention, the leg is warm yet no pulse, seen by surgery planning exploration in the morning Objective - Vital Signs/Intake and Output Vital Signs (last 24 hours): Temp Pulse Resp BP Pulse Ox 98.9 F 5 L 20 153/64 H 98 03/05/17 12:00 03/05/17 14:00 03/05/17 14:00 03/05/17 14:00 03/05/17 14:00 Intake and Output: 03/05/17 03/05/17 06:59 18:59 Intake Total 1138.7 704.4 Output Total 900 1050 Balance 238.7 -345.6 - Medications Medications: Current Medications Acetaminophen (Tylenol 325mg Tab) 650 mg PO Q6 PRN PRN Reason: Fever >100.4 F Last Admin: 03/05/17 07:53 Dose: 650 mg Docusate Sodium (Colace) 100 mg PO BID [facility] Last Admin: 03/05/17 09:25 Dose: 100 mg Heparin Sodium/Sodium Chloride (Heparin 24015 Units/250ml 1/2 Normal Saline) 250 mls @ 5.715 mls/hr IV .Q24H [facility]; 12 UNITS/KG/HR PRN Reason: Protocol Last Titration: 03/04/17 21:56 Dose: 9 units/kg/hr Ondansetron HCl (Zofran Inj) 4 mg IVP Q6H PRN PRN Reason: Nausea/Vomiting Ondansetron HCl (Zofran Inj) 4 mg IVP Q6 PRN PRN Reason: Nausea/Vomiting Oxycodone/Acetaminophen (Percocet 5/325 Mg Tab) 1 tab PO Q4 PRN PRN Reason: Pain, moderate (4-7) Stop: 03/06/17 20:22 Last Admin: 03/05/17 10:51 Dose: 1 tab Sucralfate (Carafate Tab) 1 gm PO BID [facility] Last Admin: 03/05/17 09:25 Dose: 1 gm - Labs Labs: 03/05/17 04:01 03/05/17 04:01 PT 11.4 SECONDS (9.7-12.2) 03/03/17 16:56 INR 1.0 03/03/17 16:56 APTT 55 SECONDS (21-34) H 03/05/17 12:49 - Constitutional Appears: Non-toxic - Head Exam Head Exam: ATRAUMATIC - Eye Exam Eye Exam: EOMI - ENT Exam ENT Exam: Mucous Membranes Moist - Neck Exam Neck Exam: absent: Lymphadenopathy, Thyromegaly - Respiratory Exam Respiratory Exam: Clear to Ausculation Bilateral. absent: Rales - Cardiovascular Exam Cardiovascular Exam: REGULAR RHYTHM, Murmur - GI/Abdominal Exam GI & Abdominal Exam: Normal Bowel Sounds. absent: Organomegaly - Rectal Exam Rectal Exam: Deferred - Extremities Exam Extremities Exam: Normal Capillary Refill. absent: Calf Tenderness - Neurological Exam Neurological Exam: Alert, Oriented x3 - Psychiatric Exam Psychiatric exam: Normal Mood - Skin Skin Exam: Dry Assessment and Plan (1) Arterial occlusion, lower extremity Status: Acute (2) Ischemia of foot Status: Acute
[2017-03-05] MEDS: Heparin25000 units/250ml 1/2NS 250 ML IV SCH (17:02)
[2017-03-06 04:32] LABS: CHLORIDE 110 mmol/L (98-107); POTASSIUM 4.1 mmol/L (3.6-5.2); SODIUM 141 mmol/L (132-148)
[2017-03-06 04:34] LABS: ALB/GLOB RATIO 1.1 (1.0-2.1); ALKALINE PHOSPHATASE 52 U/L (38-126); AST/SGOT 74 U/L (14-36); BILIRUBIN,TOTAL < 0.1 mg/dL (0.2-1.3); CARBON DIOXIDE 21 mmol/L (22-30); GFR AFRICAN-AMERICAN > 60; TOTAL PROTEIN 5.8 g/dL (6.3-8.3)
[2017-03-06 04:35] LABS: ALT/SGPT 17 U/L (9-52); BLOOD UREA NITROGEN 11 mg/dL (7-17); CALCIUM 8.2 mg/dl (8.6-10.4); GLUCOSE,RANDOM 90 mg/dL (65-105); PHOSPHOROUS 2.9 mg/dL (2.5-4.5)
[2017-03-06 04:36] LABS: BASO # 0.1 K/uL (0.0-0.2); BASO % 1.3 % (0.0-2.0); EOS # 0.6 K/uL (0.0-0.7); EOS % 6.3 % (0.0-4.0); LYMPH # 1.9 K/uL (1.0-4.3); LYMPH % 21.1 % (20.0-40.0); MAGNESIUM 1.8 mg/dL (1.6-2.3); MEAN CELL VOLUME 87.8 fL (81.0-99.0); MEAN CORPUSCULAR HEMOGLOBIN 27.9 pg (27.0-31.0); MEAN CORPUSCULAR HGB CONC 31.8 g/dL (33.0-37.0); MEAN PLATELET VOLUME 8.1 fL (7.2-11.7); MONO # 1.2 K/uL (0.0-0.8); MONO % 13.2 % (0.0-10.0); NRBC % 0.1 % (0.0-2.0); RED CELL DISTRIBUTION WIDTH 22.2 % (11.5-14.5); WHITE BLOOD COUNT 8.8 K/uL (4.8-10.8)
--- NOTE | 2017-03-06 07:59 | CP.PCM.PN ---
Subjective - Date & Time of Evaluation Date of Evaluation: 03/06/17 Time of Evaluation: 11:00 - Subjective Subjective: for exploration, f/u with surgery Objective - Vital Signs/Intake and Output Vital Signs (last 24 hours): Temp Pulse Resp BP Pulse Ox 98.4 F 68 16 132/73 99 03/06/17 04:00 03/06/17 07:00 03/06/17 07:00 03/06/17 07:00 03/06/17 07:00 Intake and Output: 03/06/17 03/06/17 06:59 18:59 Intake Total 51.6 4.3 Output Total 900 Balance -848.4 4.3 - Medications Medications: Current Medications Acetaminophen (Tylenol 325mg Tab) 650 mg PO Q6 PRN PRN Reason: Fever >100.4 F Last Admin: 03/05/17 07:53 Dose: 650 mg Docusate Sodium (Colace) 100 mg PO BID [facility] Last Admin: 03/05/17 17:20 Dose: 100 mg Heparin Sodium/Sodium Chloride (Heparin 91933 Units/250ml 1/2 Normal Saline) 250 mls @ 5.715 mls/hr IV .Q24H [facility]; 12 UNITS/KG/HR PRN Reason: Protocol Last Admin: 03/05/17 17:02 Dose: Not Given Ondansetron HCl (Zofran Inj) 4 mg IVP Q6H PRN PRN Reason: Nausea/Vomiting Ondansetron HCl (Zofran Inj) 4 mg IVP Q6 PRN PRN Reason: Nausea/Vomiting Oxycodone/Acetaminophen (Percocet 5/325 Mg Tab) 1 tab PO Q4 PRN PRN Reason: Pain, moderate (4-7) Stop: 03/06/17 20:22 Last Admin: 03/05/17 23:45 Dose: 1 tab Sucralfate (Carafate Tab) 1 gm PO BID [facility] Last Admin: 03/05/17 17:20 Dose: 1 gm - Labs Labs: 03/06/17 04:23 03/06/17 04:23 PT 11.4 SECONDS (9.7-12.2) 03/03/17 16:56 INR 1.0 03/03/17 16:56 APTT 56 SECONDS (21-34) H 03/06/17 04:23 - Constitutional Appears: Non-toxic - Head Exam Head Exam: ATRAUMATIC - Eye Exam Eye Exam: EOMI - ENT Exam ENT Exam: Mucous Membranes Moist - Neck Exam Neck Exam: absent: Lymphadenopathy, Thyromegaly - Respiratory Exam Respiratory Exam: Clear to Ausculation Bilateral. absent: Rales - Cardiovascular Exam Cardiovascular Exam: REGULAR RHYTHM - GI/Abdominal Exam GI & Abdominal Exam: Normal Bowel Sounds. absent: Organomegaly - Rectal Exam Rectal Exam: Deferred - Extremities Exam Extremities Exam: Normal Capillary Refill. absent: Calf Tenderness - Neurological Exam Neurological Exam: Alert, Oriented x3 - Psychiatric Exam Psychiatric exam: Normal Mood - Skin Skin Exam: Dry Assessment and Plan (1) Arterial occlusion, lower extremity Status: Acute (2) Ischemia of foot Status: Acute
[2017-03-06] MEDS ORDERED: Propofol 10 mg/ml Inj (20 ML) ONE (08:45)
[2017-03-06] MEDS ORDERED: Lactated Ringer's 1,000 ML IV ONE (08:45)
[2017-03-06] MEDS ORDERED: Midazolam 2 MG/2 ML VIAL ONE (08:45)
[2017-03-06] MEDS ORDERED: Sodium Chloride 0.9% 1,000 ML IV ONE (08:45)
[2017-03-06] MEDS ORDERED: Iohexol 240 (50 ml) ONE (08:54)
[2017-03-06] MEDS ORDERED: ceFAZolin 1 gm FROZEN Premix 50 ML IVPB ONE (08:54)
[2017-03-06] MEDS ORDERED: HYDROmorphone 0.5 mg/0.5 ml ISec IVP PRN (10:37)
--- NOTE | 2017-03-06 13:39 | OP ---
PROCEDURE DATE: 03/06/2017 PREOPERATIVE DIAGNOSIS: Occlusion left femoral artery. PROCEDURE CARRIED OUT: Repair of left femoral artery, patch angioplasty and thrombectomy of external iliac artery. SURGEON: Krishan Benedict Jr., MD WASHING TUB OPERATOR: ANESTHESIOLOGIST: Dr. Gotti. The patient is a 71-year-old woman who less than 48 hours ago underwent intervention on her right leg for ischemia of the right leg via the left groin. Postoperatively, she had diminished pulses in the leg and this did not improve. OPERATIVE FINDINGS: There was an occlusion of the femoral artery just at the origin of the profunda femoris. The puncture site was just above the bifurcation of the common femoral to the superficial f emoral and profunda femoris and the occlusion was right at this spot. The superficial femoral artery was occluded as we knew previously. In addition, there was propagation of clot proximally up the ex ternal iliac artery. PROCEDURE: The patient was given general anesthesia, intravenous antibiotics. The common, superfici al, and profunda femoris arteries were dissected free of surrounding tissues. This was somewhat diff icult due to the scarring here. After the vessels had been controlled and identified, heparin was gi iliana. The vessel was then opened in a longitudinal fashion over the profunda femoris artery. The Per close device had completely occluded and cinched down the anterior to the posterior wall. In additio n, there was damage to the intimal surface. In addition, clot had propagated up the external iliac a rtery for approximately 2 inches. We then opened the artery, removed clot, carried out a thrombectom y distally and proximally. The SFA, as I said, was previously occluded. After we had cleaned this o ut and had adequate inflow with brisk inflow of bleeding, we then placed a Vascu-Guard patch here and sutured it to the surrounding tissues using loupe magnification and the patient was fully anticoagul ated. After the appropriate flushing maneuvers were taken, we then flushed down into the superficial femoral artery orifice and the rest of the flow was directed down into the profundus. We had to car ry it out using balloon catheters. We had to carry out a thrombectomy of the external iliac artery, which resulted in brisk flow. After we had obtained adequate hemostasis and carefully inspected the arteriotomy edges, we then closed the wound with Monocryl and Vicryl sutures, fine nylon sutures on t he skin. Blood loss of the procedure was approximately 300 mL. OPERATION CARRIED OUT: Exploration of left groin, repair of left femoral artery and with patch angio plasty and thrombectomy of left external iliac artery. Krishan Benedict Jr., MD cc:Gisela Judd MD 56 TT: 03/06/2017 13:38:34 en
--- NOTE | 2017-03-06 13:43 | PCM.SURG1 ---
Surgeon's Initial Post Op Note - Surgeon's Notes Surgeon: Dr. Benedict Bracelet And Brooch Maker: Dr. Guerrero PGY1, Will Solis OMS3 Type of Anesthesia: General LMA Pre-Operative Diagnosis: PVD Operative Findings: see dictation Post-Operative Diagnosis: same Operation Performed: Left femoral artery repair w/ graft and Left external iliac thrombectomy Specimen/Specimens Removed: endoclosure stich; thrombus Estimated Blood Loss: EBL {In ML}: 300 Blood Products Given: N/A Drains Used: No Drains Post-Op Condition: Good Date of Surgery/Procedure: 03/06/17 Time of Surgery/Procedure: 08:45
[2017-03-07 06:40] LABS: BASO # 0.1 K/uL (0.0-0.2); BASO % 0.8 % (0.0-2.0); EOS # 0.4 K/uL (0.0-0.7); EOS % 3.5 % (0.0-4.0); HEMATOCRIT 29.9 % (34.0-47.0); LYMPH # 1.1 K/uL (1.0-4.3); LYMPH % 10.1 % (20.0-40.0); MEAN CELL VOLUME 86.5 fL (81.0-99.0); MEAN CORPUSCULAR HEMOGLOBIN 27.6 pg (27.0-31.0); MEAN CORPUSCULAR HGB CONC 31.9 g/dL (33.0-37.0); MEAN PLATELET VOLUME 8.3 fL (7.2-11.7); MONO # 1.3 K/uL (0.0-0.8); MONO % 12.6 % (0.0-10.0); RED CELL DISTRIBUTION WIDTH 21.9 % (11.5-14.5); WHITE BLOOD COUNT 10.6 K/uL (4.8-10.8)
[2017-03-07 06:55] LABS: CHLORIDE 107 mmol/L (98-107)
[2017-03-07 06:56] LABS: POTASSIUM 4.1 mmol/L (3.6-5.2); SODIUM 137 mmol/L (132-148)
[2017-03-07 06:58] LABS: CARBON DIOXIDE 19 mmol/L (22-30); GFR AFRICAN-AMERICAN > 60
[2017-03-07 06:59] LABS: ALKALINE PHOSPHATASE 59 U/L (38-126); ALT/SGPT 17 U/L (9-52); AST/SGOT 62 U/L (14-36); BILIRUBIN,TOTAL 0.2 mg/dL (0.2-1.3); BLOOD UREA NITROGEN 10 mg/dL (7-17); CALCIUM 8.3 mg/dl (8.6-10.4); GLUCOSE,RANDOM 97 mg/dL (65-105); TOTAL PROTEIN 6.1 g/dL (6.3-8.3)
[2017-03-07 07:00] LABS: MAGNESIUM 1.8 mg/dL (1.6-2.3)
[2017-03-07] MEDS ORDERED: Oxycodone/Acetaminophen 5/325 mg Tab PO STA (09:30)
--- NOTE | 2017-03-07 13:02 | CP.PCM.PN ---
Subjective - Date & Time of Evaluation Date of Evaluation: 03/07/17 Time of Evaluation: 13:00 - Subjective Subjective: Postop doing well, observe pulse with surgery, on aspirin and Plavix Objective - Vital Signs/Intake and Output Vital Signs (last 24 hours): Temp Pulse Resp BP Pulse Ox 98.8 F 99 H 21 147/78 98 03/07/17 08:00 03/07/17 08:00 03/07/17 08:00 03/07/17 07:00 03/07/17 07:01 Intake and Output: 03/07/17 03/07/17 06:59 18:59 Intake Total 480 560 Output Total 900 0 Balance -420 560 - Medications Medications: Current Medications Acetaminophen (Tylenol 325mg Tab) 650 mg PO Q6 PRN PRN Reason: Fever >100.4 F Last Admin: 03/05/17 07:53 Dose: 650 mg Aspirin (Aspirin Chewable) 81 mg PO DAILY [facility] Last Admin: 03/07/17 09:29 Dose: 81 mg Clopidogrel Bisulfate (Plavix) 75 mg PO DAILY [facility] Last Admin: 03/07/17 09:29 Dose: 75 mg Docusate Sodium (Colace) 100 mg PO BID [facility] Last Admin: 03/07/17 09:30 Dose: 100 mg Heparin Sodium (Porcine) (Heparin) 5,000 units SC Q8 [facility] Last Admin: 03/07/17 09:30 Dose: 5,000 units Ondansetron HCl (Zofran Inj) 4 mg IVP Q6H PRN PRN Reason: Nausea/Vomiting Ondansetron HCl (Zofran Inj) 4 mg IVP Q6 PRN PRN Reason: Nausea/Vomiting Sucralfate (Carafate Tab) 1 gm PO BID [facility] Last Admin: 03/07/17 09:30 Dose: 1 gm - Labs Labs: 03/07/17 06:33 03/07/17 06:33 PT 11.4 SECONDS (9.7-12.2) 03/03/17 16:56 INR 1.0 03/03/17 16:56 APTT 56 SECONDS (21-34) H 03/06/17 04:23 - Constitutional Appears: Non-toxic - Head Exam Head Exam: ATRAUMATIC - Eye Exam Eye Exam: EOMI - ENT Exam ENT Exam: Mucous Membranes Moist - Neck Exam Neck Exam: absent: Lymphadenopathy, Thyromegaly - Respiratory Exam Respiratory Exam: Clear to Ausculation Bilateral. absent: Rales - Cardiovascular Exam Cardiovascular Exam: REGULAR RHYTHM, Murmur - GI/Abdominal Exam GI & Abdominal Exam: Normal Bowel Sounds. absent: Organomegaly - Rectal Exam Rectal Exam: Deferred - Extremities Exam Extremities Exam: Normal Capillary Refill. absent: Calf Tenderness - Neurological Exam Neurological Exam: Alert, Oriented x3 - Psychiatric Exam Psychiatric exam: Normal Mood - Skin Skin Exam: Dry Assessment and Plan (1) Arterial occlusion, lower extremity Status: Acute (2) Ischemia of foot Status: Acute
[2017-03-07] MEDS: Oxycodone/Acetaminophen 5/325 mg Tab PO PRN (22:17)
--- NOTE | 2017-03-08 00:39 | CP.PCM.PN ---
Subjective - Date & Time of Evaluation Date of Evaluation: 03/07/17 Time of Evaluation: 07:45 - Subjective Subjective: Vascular Surgery: Dr. Benedict Pt S&E this AM. Out of bed to chair. No complaints. B/l extremities warm. + doppler. Objective - Vital Signs/Intake and Output Vital Signs (last 24 hours): Temp Pulse Resp BP Pulse Ox 97.1 F L 90 18 119/67 100 03/08/17 00:00 03/08/17 00:00 03/08/17 00:00 03/08/17 00:00 03/08/17 00:00 Intake and Output: 03/07/17 03/08/17 18:59 06:59 Intake Total 980 Output Total 300 Balance 680 - Medications Medications: Current Medications Acetaminophen (Tylenol 325mg Tab) 650 mg PO Q6 PRN PRN Reason: Fever >100.4 F Last Admin: 03/05/17 07:53 Dose: 650 mg Aspirin (Aspirin Chewable) 81 mg PO DAILY [facility] Last Admin: 03/07/17 09:29 Dose: 81 mg Clopidogrel Bisulfate (Plavix) 75 mg PO DAILY [facility] Last Admin: 03/07/17 09:29 Dose: 75 mg Docusate Sodium (Colace) 100 mg PO BID [facility] Last Admin: 03/07/17 17:34 Dose: 100 mg Heparin Sodium (Porcine) (Heparin) 5,000 units SC Q8 [facility] Last Admin: 03/07/17 21:50 Dose: 5,000 units Ondansetron HCl (Zofran Inj) 4 mg IVP Q6H PRN PRN Reason: Nausea/Vomiting Ondansetron HCl (Zofran Inj) 4 mg IVP Q6 PRN PRN Reason: Nausea/Vomiting Oxycodone/Acetaminophen (Percocet 5/325 Mg Tab) 1 tab PO Q6H PRN PRN Reason: Pain, Mild (1-3) Stop: 03/10/17 21:53 Last Admin: 03/07/17 22:17 Dose: 1 tab Sucralfate (Carafate Tab) 1 gm PO BID [facility] Last Admin: 03/07/17 17:34 Dose: 1 gm - Labs Labs: 03/07/17 06:33 03/07/17 06:33 PT 11.4 SECONDS (9.7-12.2) 03/03/17 16:56 INR 1.0 03/03/17 16:56 APTT 56 SECONDS (21-34) H 03/06/17 04:23 - Constitutional Appears: No Acute Distress - Head Exam Head Exam: NORMOCEPHALIC - Eye Exam Eye Exam: Normal appearance - ENT Exam ENT Exam: Mucous Membranes Moist - Respiratory Exam Respiratory Exam: NORMAL BREATHING PATTERN - Cardiovascular Exam Cardiovascular Exam: +S1, +S2 - GI/Abdominal Exam GI & Abdominal Exam: Soft - Extremities Exam Extremities Exam: absent: Pedal Edema, Tenderness - Neurological Exam Neurological Exam: Alert, Awake - Psychiatric Exam Psychiatric exam: Normal Mood - Skin Skin Exam: Intact, Warm Assessment and Plan - Assessment and Plan (Free Text) Assessment: 71F s/p Left femoral artery repair w/ patch and left external iliac thrombectomy POD #1 -Monitor H/H -Check groin site -Monitor pulses -ASA/Plavix -Renal diet -Analgesic -Further recs per Dr. Benedict
[2017-03-08 06:57] LABS: MEAN CELL VOLUME 87.4 fL (81.0-99.0); MEAN CORPUSCULAR HEMOGLOBIN 28.5 pg (27.0-31.0); MEAN CORPUSCULAR HGB CONC 32.6 g/dL (33.0-37.0); MEAN PLATELET VOLUME 8.4 fL (7.2-11.7); RED CELL DISTRIBUTION WIDTH 21.8 % (11.5-14.5); WHITE BLOOD COUNT 10.4 K/uL (4.8-10.8)
[2017-03-08 06:59] LABS: CHLORIDE 105 mmol/L (98-107); POTASSIUM 4.4 mmol/L (3.6-5.2); SODIUM 136 mmol/L (132-148)
[2017-03-08 07:01] LABS: GFR AFRICAN-AMERICAN > 60
[2017-03-08 07:02] LABS: BLOOD UREA NITROGEN 15 mg/dL (7-17); CALCIUM 8.4 mg/dl (8.6-10.4); CARBON DIOXIDE 19 mmol/L (22-30); GLUCOSE,RANDOM 86 mg/dL (65-105)
[2017-03-08 07:57] VITALS: RESP 20; O2SAT 98
--- NOTE | 2017-03-08 09:56 | CP.PCM.PN ---
Subjective - Date & Time of Evaluation Date of Evaluation: 03/08/17 Time of Evaluation: 09:54 - Subjective Subjective: PGY-[address] Benedict: Patient seen and examined this morning. Patient resting comfortably in bed. Patient states minor pain in left leg. Patient complaining of weakness with standing and walking. Patient states she is eating well. Objective - Vital Signs/Intake and Output Vital Signs (last 24 hours): Temp Pulse Resp BP Pulse Ox 98.7 F 102 H 20 113/70 98 03/08/17 08:00 03/08/17 08:00 03/08/17 08:00 03/08/17 08:00 03/08/17 08:00 - Medications Medications: Current Medications Acetaminophen (Tylenol 325mg Tab) 650 mg PO Q6 PRN PRN Reason: Fever >100.4 F Last Admin: 03/05/17 07:53 Dose: 650 mg Aspirin (Aspirin Chewable) 81 mg PO DAILY [facility] Last Admin: 03/07/17 09:29 Dose: 81 mg Clopidogrel Bisulfate (Plavix) 75 mg PO DAILY [facility] Last Admin: 03/07/17 09:29 Dose: 75 mg Docusate Sodium (Colace) 100 mg PO BID [facility] Last Admin: 03/07/17 17:34 Dose: 100 mg Heparin Sodium (Porcine) (Heparin) 5,000 units SC Q8 [facility] Last Admin: 03/07/17 21:50 Dose: 5,000 units Ondansetron HCl (Zofran Inj) 4 mg IVP Q6H PRN PRN Reason: Nausea/Vomiting Ondansetron HCl (Zofran Inj) 4 mg IVP Q6 PRN PRN Reason: Nausea/Vomiting Oxycodone/Acetaminophen (Percocet 5/325 Mg Tab) 1 tab PO Q6H PRN PRN Reason: Pain, Mild (1-3) Stop: 03/10/17 21:53 Last Admin: 03/07/17 22:17 Dose: 1 tab Sucralfate (Carafate Tab) 1 gm PO BID [facility] Last Admin: 03/07/17 17:34 Dose: 1 gm - Labs Labs: 03/08/17 06:34 03/08/17 06:34 PT 11.4 SECONDS (9.7-12.2) 03/03/17 16:56 INR 1.0 03/03/17 16:56 APTT 56 SECONDS (21-34) H 03/06/17 04:23 - Constitutional Appears: Non-toxic, No Acute Distress - Head Exam Head Exam: ATRAUMATIC, NORMOCEPHALIC - Eye Exam Eye Exam: EOMI - ENT Exam ENT Exam: Mucous Membranes Moist - Respiratory Exam Respiratory Exam: NORMAL BREATHING PATTERN - Extremities Exam Additional comments: left leg with + DP, PT pulses by doppler right leg with + PT pulses by doppler b/l legs warm to touch - Neurological Exam Neurological Exam: Alert, Awake - Psychiatric Exam Psychiatric exam: Normal Affect - Skin Skin Exam: Warm Assessment and Plan - Assessment and Plan (Free Text) Assessment: 71F s/p Left femoral artery repair w/ graft and Left external iliac thrombectomy POD #2 - monitor H&H- stable - check groin site - pulses + by doppler, continue to monitor - continue aspirin and plavix - PT eval - further recs per Dr. Benedict
--- NOTE | 2017-03-08 18:52 | CP.PCM.PN ---
Subjective - Date & Time of Evaluation Date of Evaluation: 03/08/17 Time of Evaluation: 13:00 - Subjective Subjective: less pain, normal color, f/u with surgery Objective - Vital Signs/Intake and Output Vital Signs (last 24 hours): Temp Pulse Resp BP Pulse Ox 98.3 F 94 H 20 120/70 98 03/08/17 16:00 03/08/17 16:00 03/08/17 16:00 03/08/17 16:00 03/08/17 16:00 Intake and Output: 03/08/17 03/08/17 06:59 18:59 Intake Total 350 Balance 350 - Medications Medications: Current Medications Acetaminophen (Tylenol 325mg Tab) 650 mg PO Q6 PRN PRN Reason: Fever >100.4 F Last Admin: 03/05/17 07:53 Dose: 650 mg Aspirin (Aspirin Chewable) 81 mg PO DAILY [facility] Last Admin: 03/08/17 10:29 Dose: 81 mg Clopidogrel Bisulfate (Plavix) 75 mg PO DAILY [facility] Last Admin: 03/08/17 10:29 Dose: 75 mg Docusate Sodium (Colace) 100 mg PO BID [facility] Last Admin: 03/08/17 18:07 Dose: 100 mg Heparin Sodium (Porcine) (Heparin) 5,000 units SC Q8 [facility] Last Admin: 03/08/17 13:27 Dose: Not Given Ondansetron HCl (Zofran Inj) 4 mg IVP Q6H PRN PRN Reason: Nausea/Vomiting Ondansetron HCl (Zofran Inj) 4 mg IVP Q6 PRN PRN Reason: Nausea/Vomiting Oxycodone/Acetaminophen (Percocet 5/325 Mg Tab) 1 tab PO Q6H PRN PRN Reason: Pain, Mild (1-3) Stop: 03/10/17 21:53 Last Admin: 03/07/17 22:17 Dose: 1 tab Sucralfate (Carafate Tab) 1 gm PO BID [facility] Last Admin: 03/08/17 18:07 Dose: 1 gm - Labs Labs: 03/08/17 06:34 03/08/17 06:34 PT 11.4 SECONDS (9.7-12.2) 03/03/17 16:56 INR 1.0 03/03/17 16:56 APTT 56 SECONDS (21-34) H 03/06/17 04:23 - Constitutional Appears: Non-toxic - Head Exam Head Exam: ATRAUMATIC - Eye Exam Eye Exam: EOMI - ENT Exam ENT Exam: Mucous Membranes Moist - Neck Exam Neck Exam: absent: Lymphadenopathy, Thyromegaly - Respiratory Exam Respiratory Exam: Clear to Ausculation Bilateral. absent: Rales - Cardiovascular Exam Cardiovascular Exam: REGULAR RHYTHM, Murmur - GI/Abdominal Exam GI & Abdominal Exam: Normal Bowel Sounds. absent: Organomegaly - Rectal Exam Rectal Exam: Deferred - Extremities Exam Extremities Exam: Normal Capillary Refill. absent: Calf Tenderness - Neurological Exam Neurological Exam: Alert, Oriented x3 - Psychiatric Exam Psychiatric exam: Normal Mood - Skin Skin Exam: Dry Assessment and Plan (1) Ischemia of foot Status: Acute (2) Arterial occlusion, lower extremity Status: Acute
[2017-03-08] MEDS: Oxycodone/Acetaminophen 5/325 mg Tab PO PRN (21:57)
[2017-03-09 07:35] LABS: INR 1.1
[2017-03-09 07:37] LABS: BASO # 0.1 K/uL (0.0-0.2); BASO % 1.1 % (0.0-2.0); EOS # 0.6 K/uL (0.0-0.7); EOS % 6.2 % (0.0-4.0); HEMATOCRIT 26.8 % (34.0-47.0); LYMPH # 1.4 K/uL (1.0-4.3); LYMPH % 15.3 % (20.0-40.0); MEAN CELL VOLUME 85.5 fL (81.0-99.0); MEAN CORPUSCULAR HEMOGLOBIN 28.1 pg (27.0-31.0); MEAN CORPUSCULAR HGB CONC 32.9 g/dL (33.0-37.0); MEAN PLATELET VOLUME 7.8 fL (7.2-11.7); MONO # 1.2 K/uL (0.0-0.8); MONO % 12.7 % (0.0-10.0); RED CELL DISTRIBUTION WIDTH 21.2 % (11.5-14.5); WHITE BLOOD COUNT 9.2 K/uL (4.8-10.8)
[2017-03-09 07:55] LABS: CHLORIDE 104 mmol/L (98-107); SODIUM 137 mmol/L (132-148)
[2017-03-09 07:57] LABS: AST/SGOT 34 U/L (14-36); BILIRUBIN,TOTAL 0.2 mg/dL (0.2-1.3); CARBON DIOXIDE 22 mmol/L (22-30); GFR AFRICAN-AMERICAN > 60; TOTAL PROTEIN 6.7 g/dL (6.3-8.3)
[2017-03-09 07:58] LABS: ALKALINE PHOSPHATASE 59 U/L (38-126); ALT/SGPT 20 U/L (9-52); BLOOD UREA NITROGEN 19 mg/dL (7-17); CALCIUM 8.4 mg/dl (8.6-10.4); GLUCOSE,RANDOM 95 mg/dL (65-105)
--- NOTE | 2017-03-09 13:41 | CP.PCM.PN ---
Subjective - Date & Time of Evaluation Date of Evaluation: 03/09/17 Time of Evaluation: 07:15 - Subjective Subjective: Vascular Surgery Dr. Benedict Pt S&E @bedside. some pain overnight but well controlled w/ medication. currently no complaints. denies F/C, N/V, D/C, numbness, tingling. tolerating diet. Objective - Vital Signs/Intake and Output Vital Signs (last 24 hours): Temp Pulse Resp BP Pulse Ox 98.8 F 89 20 116/60 98 03/09/17 08:00 03/09/17 08:00 03/09/17 08:00 03/09/17 08:00 03/09/17 08:00 Intake and Output: 03/09/17 03/09/17 06:59 18:59 Intake Total 240 Balance 240 - Medications Medications: Current Medications Acetaminophen (Tylenol 325mg Tab) 650 mg PO Q6 PRN PRN Reason: Fever >100.4 F Last Admin: 03/05/17 07:53 Dose: 650 mg Aspirin (Aspirin Chewable) 81 mg PO DAILY [facility] Last Admin: 03/09/17 10:06 Dose: 81 mg Clopidogrel Bisulfate (Plavix) 75 mg PO DAILY [facility] Last Admin: 03/09/17 10:06 Dose: 75 mg Docusate Sodium (Colace) 100 mg PO BID [facility] Last Admin: 03/09/17 10:06 Dose: 100 mg Heparin Sodium (Porcine) (Heparin) 5,000 units SC Q8 [facility] Last Admin: 03/09/17 13:11 Dose: 5,000 units Ondansetron HCl (Zofran Inj) 4 mg IVP Q6H PRN PRN Reason: Nausea/Vomiting Ondansetron HCl (Zofran Inj) 4 mg IVP Q6 PRN PRN Reason: Nausea/Vomiting Oxycodone/Acetaminophen (Percocet 5/325 Mg Tab) 1 tab PO Q6H PRN PRN Reason: Pain, Mild (1-3) Stop: 03/10/17 21:53 Last Admin: 03/08/17 21:57 Dose: 1 tab Sucralfate (Carafate Tab) 1 gm PO BID [facility] Last Admin: 03/09/17 10:07 Dose: 1 gm - Labs Labs: 03/09/17 07:20 03/09/17 07:20 PT 12.7 SECONDS (9.7-12.2) H 03/09/17 07:20 INR 1.1 03/09/17 07:20 APTT 56 SECONDS (21-34) H 03/06/17 04:23 - Constitutional Appears: Non-toxic, No Acute Distress - Head Exam Head Exam: NORMAL INSPECTION - Eye Exam Eye Exam: Normal appearance - ENT Exam ENT Exam: Mucous Membranes Moist - Respiratory Exam Respiratory Exam: NORMAL BREATHING PATTERN. absent: Accessory Muscle Use, Respiratory Distress - Cardiovascular Exam Cardiovascular Exam: REGULAR RHYTHM. absent: Bradycardia, Tachycardia - GI/Abdominal Exam GI & Abdominal Exam: Soft. absent: Distended - Extremities Exam Extremities Exam: Normal Capillary Refill, Normal Inspection. absent: Pedal Edema, Tenderness Additional comments: L groin dressing c/d/i L leg warmer than R leg B/L pulses heard on Doppler. - Neurological Exam Neurological Exam: Alert, Awake, Oriented x3 - Psychiatric Exam Psychiatric exam: Normal Affect, Normal Mood - Skin Skin Exam: Dry, Intact, Normal Color, Warm Assessment and Plan - Assessment and Plan (Free Text) Assessment: 71 y/o F w/ PVD POD#3 s/p L femoral artery rpair w/ patch and L external iliac thrombectomy - cont pulse checks - cont pain management - cont medical management Further recs per Dr. Marichuy Guerrero DO PGY1
[2017-03-09 16:42] VITALS: BP 120/70; PULSE 92; TEMP 98.3
--- NOTE | 2017-03-09 17:04 | CP.PCM.PN ---
Subjective - Date & Time of Evaluation Date of Evaluation: 03/09/17 Time of Evaluation: 11:00 - Subjective Subjective: Alert, oriented, no sob or chest pains. Objective - Vital Signs/Intake and Output Vital Signs (last 24 hours): Temp Pulse Resp BP Pulse Ox 98.3 F 92 H 20 120/70 98 03/09/17 16:00 03/09/17 16:00 03/09/17 16:00 03/09/17 16:00 03/09/17 16:00 Intake and Output: 03/09/17 03/09/17 06:59 18:59 Intake Total 240 Balance 240 - Medications Medications: Current Medications Acetaminophen (Tylenol 325mg Tab) 650 mg PO Q6 PRN PRN Reason: Fever >100.4 F Last Admin: 03/05/17 07:53 Dose: 650 mg Aspirin (Aspirin Chewable) 81 mg PO DAILY [facility] Last Admin: 03/09/17 10:06 Dose: 81 mg Clopidogrel Bisulfate (Plavix) 75 mg PO DAILY [facility] Last Admin: 03/09/17 10:06 Dose: 75 mg Docusate Sodium (Colace) 100 mg PO BID [facility] Last Admin: 03/09/17 10:06 Dose: 100 mg Heparin Sodium (Porcine) (Heparin) 5,000 units SC Q8 [facility] Last Admin: 03/09/17 13:11 Dose: 5,000 units Ondansetron HCl (Zofran Inj) 4 mg IVP Q6H PRN PRN Reason: Nausea/Vomiting Ondansetron HCl (Zofran Inj) 4 mg IVP Q6 PRN PRN Reason: Nausea/Vomiting Oxycodone/Acetaminophen (Percocet 5/325 Mg Tab) 1 tab PO Q6H PRN PRN Reason: Pain, Mild (1-3) Stop: 03/10/17 21:53 Last Admin: 03/08/17 21:57 Dose: 1 tab Sucralfate (Carafate Tab) 1 gm PO BID [facility] Last Admin: 03/09/17 10:07 Dose: 1 gm - Labs Labs: 03/09/17 07:20 03/09/17 07:20 PT 12.7 SECONDS (9.7-12.2) H 03/09/17 07:20 INR 1.1 03/09/17 07:20 APTT 56 SECONDS (21-34) H 03/06/17 04:23 Assessment and Plan - Assessment and Plan (Free Text) Assessment: Patient is seen and examined. No sob or chest pains. Has pain with walking. Cleared by DR Méndez for discharge. D/W DR Judd, plan to discharge to rehab possibly TCU today. No acute distress.
--- NOTE | 2017-03-09 19:38 | CP.PCM.DIS ---
Provider - Provider Date of Admission: 03/03/17 17:26 Attending physician: Gisela Judd MD Time Spent in preparation of Discharge (in minutes): 20 Diagnosis - Discharge Diagnosis (1) Ischemia of foot Status: Acute (2) Arterial occlusion, lower extremity Status: Acute Hospital Course - Lab Results Lab Results: Micro Results 03/08/17 06:00 Naris MRSA Culture (Admit) - Final MRSA NOT DETECTED 03/04/17 20:30 [facility] MRSA Culture (Admit) - Final MRSA NOT DETECTED Most Recent Lab Values WBC 9.2 K/uL (4.8-10.8) 03/09/17 07:20 RBC 3.14 Mil/uL (3.80-5.20) L 03/09/17 07:20 Hgb 8.8 g/dL (11.0-16.0) L 03/09/17 07:20 Hct 26.8 % (34.0-47.0) L 03/09/17 07:20 MCV 85.5 fL (81.0-99.0) 03/09/17 07:20 MCH 28.1 pg (27.0-31.0) 03/09/17 07:20 MCHC 32.9 g/dL (33.0-37.0) L 03/09/17 07:20 RDW 21.2 % (11.5-14.5) H 03/09/17 07:20 Plt Count 317 K/uL (130-400) 03/09/17 07:20 MPV 7.8 fL (7.2-11.7) 03/09/17 07:20 Neut % (Auto) 64.7 % (50.0-75.0) 03/09/17 07:20 Lymph % (Auto) 15.3 % (20.0-40.0) L 03/09/17 07:20 [place] % (Auto) 12.7 % (0.0-10.0) H 03/09/17 07:20 Eos % (Auto) 6.2 % (0.0-4.0) H 03/09/17 07:20 Baso % (Auto) 1.1 % (0.0-2.0) 03/09/17 07:20 Neut # 6.0 K/uL (1.8-7.0) 03/09/17 07:20 Lymph # 1.4 K/uL (1.0-4.3) 03/09/17 07:20 Eaton # 1.2 K/uL (0.0-0.8) H 03/09/17 07:20 Eos # 0.6 K/uL (0.0-0.7) 03/09/17 07:20 Baso # 0.1 K/uL (0.0-0.2) 03/09/17 07:20 PT 12.7 SECONDS (9.7-12.2) H 03/09/17 07:20 INR 1.1 03/09/17 07:20 APTT 56 SECONDS (21-34) H 03/06/17 04:23 Sodium 137 mmol/L (132-148) 03/09/17 07:20 Potassium 4.0 mmol/L (3.6-5.2) 03/09/17 07:20 Chloride 104 mmol/L (98-107) 03/09/17 07:20 Carbon Dioxide 22 mmol/L (22-30) 03/09/17 07:20 Anion Gap 15 (10-20) 03/09/17 07:20 BUN 19 mg/dL (7-17) H 03/09/17 07:20 Creatinine 0.8 MG/DL (0.7-1.2) 03/09/17 07:20 Est GFR ( Amer) > 60 03/09/17 07:20 Est GFR (Non-Af Amer) > 60 03/09/17 07:20 Random Glucose 95 mg/dL (65-105) 03/09/17 07:20 Calcium 8.4 mg/dl (8.6-10.4) L 03/09/17 07:20 Phosphorus 3.0 mg/dL (2.5-4.5) 03/07/17 06:33 Magnesium 1.8 mg/dL (1.6-2.3) 03/07/17 06:33 Total Bilirubin 0.2 mg/dL (0.2-1.3) 03/09/17 07:20 AST 34 U/L (14-36) 03/09/17 07:20 ALT 20 U/L (9-52) 03/09/17 07:20 Alkaline Phosphatase 59 U/L (38-126) 03/09/17 07:20 Total Protein 6.7 g/dL (6.3-8.3) 03/09/17 07:20 Albumin 3.4 g/dL (3.5-5.0) L 03/09/17 07:20 Globulin 3.3 gm/dL (2.2-3.9) 03/09/17 07:20 Albumin/Globulin Ratio 1.0 (1.0-2.1) 03/09/17 07:20 Blood Type B POSITIVE 03/06/17 04:36 Antibody Screen Negative 03/06/17 04:36 - Hospital Course Hospital Course: admitted with acute occlusion of L commen femoral had PCI then needed repair of R groin, did well for rehab Discharge Exam - Head Exam Head Exam: NORMAL INSPECTION - Eye Exam Eye Exam: EOMI - ENT Exam ENT Exam: Mucous Membranes Moist - Neck Exam Neck exam: Full Rom - Respiratory Exam Respiratory Exam: NORMAL BREATHING PATTERN. absent: Rales - Cardiovascular Exam Cardiovascular Exam: REGULAR RHYTHM, Systolic Murmur - GI/Abdominal Exam GI & Abdominal Exam: Normal Bowel Sounds. absent: Organomegaly - Rectal Exam Rectal Exam: Deferred - Extremities Exam Extremities exam: normal capillary refill - Neurological Exam Neurological exam: Alert, Oriented x3 - Psychiatric Exam Psychiatric exam: Normal Mood - Skin Skin Exam: Dry Discharge Plan - Discharge Medications Prescriptions: Ferrous Sulfate [Feosol] 325 mg PO DAILY #30 tab oxyCODONE/Acetaminophen [Percocet 5/325 mg Tab] 1 tab PO Q6H PRN #20 tab PRN Reason: Pain, Severe (8-10) Clopidogrel [Plavix] 75 mg PO DAILY #30 tab - Follow Up Plan Condition: STABLE Disposition: TRANSITIONAL CARE UNIT Instructions: Iron Supplements (By mouth), Oxycodone/Acetaminophen (By mouth), Clopidogrel (By mouth), Angiography (DC), Angiogram (DC) Referrals: Gisela Judd MD [Staff Provider] -
== END 2017-03-09 17:00 | DRG 272 ==
LOC: C.ER 14:01 → C.9E 17:26 → OBSVTOIN 17:26 → C.6T 21:19 → C.9I 03-04 17:51 → C.3T 03-08 07:26
PROVIDERS: ADMIT Internal Medicine Cardiovascular Disease; ATTEND Internal Medicine Cardiovascular Disease
PROC: 04CJ0ZZ Extirpation of Matter from Left External Iliac Artery, Open Approach (ICD-10-PCS; 2017-03-06)
PROC: 047L3ZZ Dilation of Left Femoral Artery, Percutaneous Approach (ICD-10-PCS; principal; 2017-03-06 08:30)
DX: T82.898A Other specified complication of vascular prosthetic devices, implants and grafts, initial encounter (principal); I10 Essential (primary) hypertension; I70.292 Other atherosclerosis of native arteries of extremities, left leg; T82.868A Thrombosis due to vascular prosthetic devices, implants and grafts, initial encounter; Y83.8 Other surgical procedures as the cause of abnormal reaction of the patient, or of later complication, without mention of misadventure at the time of the procedure; D64.9 Anemia, unspecified; I77.89 Other specified disorders of arteries and arterioles; F17.210 Nicotine dependence, cigarettes, uncomplicated